=== PATIENT | female | born 1995 | race Asian ===

== ENCOUNTER 2018-07-29 09:55 | Emergency (ER) | payer MEDICAID ==
--- NOTE | 2018-07-29 10:06 | EDPHY ---
H & P Stated Complaint: cough, bilateral ear pain, ST, congestion for 3 days. Time Seen by Provider: 07/29/18 10:05 HPI/ROS: CHIEF COMPLAINT: Cough, bilateral ear pain, nasal drainage HISTORY OF PRESENT ILLNESS: This is a healthy 23-year-old female who comes to the emergency department with 3 days of cough, rhinorrhea, bilateral ear pain, and sore throat. She has some mild back pain, no diffuse myalgias. She has not had fever. She has had an influenza vaccination. No shortness of breath or chest pain. No abdominal pain, dysuria, vomiting or diarrhea. REVIEW OF SYSTEMS: A ten system review of systems was performed and is negative with the exception of the items mentioned in the HPI. Past medical history: Negative. . Past surgical history: Negative Social history: Shows with her and 2 children. No tobacco or alcohol use. General Appearance: Alert. Vital signs reviewed. Eyes: Pupils equal and round, no conjunctival injection, no discharge. Anicteric. ENT, Mouth: Mucous membranes are moist, no oropharyngeal erythema or edema. Neck: Mild tender anterior cervical lymphadenopathy, supple. Respiratory: Lungs are clear to auscultation; no wheezes, rales, or rhonchi. Cardiovascular: Regular rate and rhythm; no murmur, rub, or gallop. Gastrointestinal: Abdomen is soft and nontender, no masses or organomegaly, bowel sounds normal. Skin: Warm and dry, no rashes on exposed skin, normal color. Back: Nontender to palpation over the thoracolumbar spine. No CVAT. Extremities: No lower extremity edema, no calf tenderness or swelling. Neurological: Alert and oriented. Moving all four extremities easily and equally. Psychiatric: Normal affect. - Personal History Current Tetanus Diphtheria and Acellular Pertussis (TDAP): Yes - Medical/Surgical History Hx Asthma: No Hx Chronic Respiratory Disease: No Hx Diabetes: No Hx Cardiac Disease: No Hx Renal Disease: No Hx Cirrhosis: No Hx Alcoholism: No Hx HIV/AIDS: No Hx Splenectomy or Spleen Trauma: No Other PMH: denies - Social History Smoking Status: Never smoked Constitutional: Initial Vital Signs Temperature (C) 36.7 C 07/29/18 10:01 Heart Rate 97 07/29/18 10:01 Respiratory Rate 16 07/29/18 10:01 Blood Pressure 114/73 07/29/18 10:01 O2 Sat (%) 95 07/29/18 10:01 O2 Delivery Mode Room Air Medical Decision Making ED Course/Re-evaluation: Signs and symptoms of what is likely viral upper respiratory infection. No evidence of pneumonia. I doubt that this is influenza. No history of reactive airway disease and no wheezes on exam. No abdominal or urinary symptoms. Will treat symptoms. Danger signs reviewed. Departure - Departure Disposition: Home, Routine, Self-Care Clinical Impression: Upper respiratory infection Qualifiers: URI type: unspecified viral URI Qualified Code(s): J06.9 - Acute upper respiratory infection, unspecified Condition: Good Instructions: Upper Respiratory Infection (ED) Additional Instructions: Adult Pain & Fever Control: We recommend Acetaminophen (Tylenol) and Ibuprofen (Motrin,Advil) for pain and fever control. When fever is high or pain severe, both drugs can be used at the same time, but at different intervals. Please note the time differences. Your dose is: Acetaminophen 650mg every 4 to 6 hours Ibuprofen 400mg every 4 hours with food OR Note: do not take Acetaminophen with Hydrocodone (Vicodin, Lortab) or Oycodone (Percocet). These medications also contain Acetaminophen. No more than 3000mg of Acetaminophen should be taken in 24 hours (for an adult). For your cough I recommend trying [place] Cold Care tea. Add some honey. You can buy this tea in the grocery store. You might try one of the over the counter nasal decongestants (such as Afrin) if you have a stuffed up nose. Follow the directions on the package. I don't think that the use of Afrin has been studied in breast feeding women--therefore we don't really know about the safety of these medications. Check the instructions on a specific medicine to see about its use when breast feeding. These illnesses usually last 5-7 days. If you are getting worse--fever, trouble breathing, new or concerning symptoms--please be re-evaluated.
[2018-07-29 12:15] VITALS: BP 110/72
== END 2018-07-29 11:31 | disposition home or self-care (01) ==
LOC: EDBD 09:55 → CED 09:55
DX: J06.9 Acute upper respiratory infection, unspecified (principal)